=== PATIENT | female | born 1980 | race Caucasian/White ===

== ENCOUNTER 2016-10-04 19:29 | Inpatient (IN) | payer MEDICAID ==
--- NOTE | 2016-10-04 20:46 | OBHP ---
Datetime: 10/04/2016 20:01 IP Adm Impression: Term, intrauterine ; No Active Labor IP Chief Complaint Other: Gestational diabetes melitus IP Admit Plan: Admit to unit; Initiate labor induction protocol Admit Comment, IP Provider: 36 yo , LMP 01/08/16, AKILAH 10/14/16, EGA 38w 4d c/o decreased mov ement since 0700 hours. Also, passed blood-tinged mucous plug 1200 hours, and onset of contractions 1 300 hours; pain scale 5/10. Spoke with Pvt Ob, Dr. Keyes - told to come in for evaluation. Currently , maintains decreased FM. issues: 1) AMA; 2) newly diagnosed A1 GDM, 10/03/16; not done F.S. ; not on meds; 3) gallstones - 06/2016. P Ob: primip P [employer]ISHING [employer]PER[employer]: 14 x monthly x 5-6 PMH: gallstones, 2015 PSH: Age 13- left surgery (fell; dislocation) NKDA Meds: PNV Soc Hx: denies tobacco, illicit drug or EtOH use. x "almost 2 years" Fam Hx: Mother alive 68 y.o. Father age 56 - complications of DM. No known fam h/o cance r P.E.: as above. WD in NAD. Awake, alert, oriented to time, person and place. Pleasant and cooperat ronald. present Assessment: 36 y.o. P0, 38w 4d, AMA, decreased movement, newly diagnosed GDM. F.S. now 62 mg /dL. Categroy 1 tracing. D/W Dr. Keyes: admit for cervical ripening and delivery. Patient agrees. [place] is clinically stable. Plan: 1) Admit 2) NPO 3) Admission labs 4) Continuous EFM 5) F.S. q4 hr 6) Pain medication, upon request 7) Cervidil 8) Anticipate vaginal delivery - as per, and discussed with, Dr. Keyes Pelvic Type - PN: Adequate Extremities - PN: Normal Abdomen - PN: Normal Back - PN: Normal Breast - PN: Not Done Lungs - PN: Normal Heart - PN: Normal Thyroid - PN: Not Done Neurologic - PN: Normal HEENT - PN: Normal General - PN: Normal Weight - Estimated: 3178 Presentation-Admit: Vertex FHR - Baseline A Provider: 130 Membranes, Provider: Intact Contraction Comments Provider: uterine irritability Comments, ACOG Physical Exam: Skin: warm, dry, intact HEENT: full ROM Lungs: CTA bilaterally Cardiac: RRR, normal S1 S2 Abdomen: Gravid. Soft, non tender. fundal height 38cm : no masses or discharge Extremities: (+) scar left knee. No calf tenderness, cyanosis or edema all other systems reviewed - as per HPI Gestation - Est Wks by US: 38w 5d EGA AdmitDate IP: 38.4 Vital Signs Provider: Reviewed IP Indication for Induction Oth: decreased movement; A1 GDM IP Chief Complaint: Decreased movement NICHD Variability Prov Fetus A: Moderate 6-25bpm NICHD Accel Fetus A IP Provider: 10X10 NICHD Decel Fetus A IP Provider: None Dilatation, Provider: 2 Effacement, Provider: 30 Station, Provider: -3 Genitourinary Exam: Normal DTRs - PN: Not Done
[2016-10-04 20:48] VITALS: BMI 26.5
[2016-10-04] MEDS ORDERED: Lactated Ringer's 1,000 ML IV SCH (21:00)
[2016-10-04] MEDS ORDERED: Nalbuphine 20 mg/ml Inj (1 ml) IVP PRN (21:00)
[2016-10-04] MEDS ORDERED: Dextrose 5%/Lactated Ringer's 1,000 ML IV SCH (21:00)
[2016-10-04 21:20] LABS: BASO # 0.1 K/uL (0.0-0.2); BASO % 0.8 % (0.0-2.0); EOS # 0.1 K/uL (0.0-0.7); EOS % 0.7 % (0.0-4.0); HEMATOCRIT 39.7 % (34.0-47.0); LYMPH # 2.1 K/uL (1.0-4.3); LYMPH % 23.3 % (20.0-40.0); MEAN CELL VOLUME 84.8 fL (81.0-99.0); MEAN CORPUSCULAR HEMOGLOBIN 28.9 pg (27.0-31.0); MEAN CORPUSCULAR HGB CONC 34.1 g/dL (33.0-37.0); MEAN PLATELET VOLUME 9.3 fL (7.2-11.7); MONO # 0.8 K/uL (0.0-0.8); MONO % 8.5 % (0.0-10.0); RBC URINE 1 /hpf (0-3); RED CELL DISTRIBUTION WIDTH 13.7 % (11.5-14.5); URINE BACTERIA OCC (<OCC); URINE BILIRUBIN NEGATIVE (NEGATIVE); URINE BLOOD 1+ (NEGATIVE); URINE COLOR Straw (YELLOW); URINE GLUCOSE (UA) NORMAL (Normal); URINE KETONE NEGATIVE (NEGATIVE); URINE LEUKOCYTE ESTERASE NEG Leu/uL (Negative); URINE PROTEIN NEGATIVE (NEGATIVE); URINE UROBILINOGEN NORMAL mg/dL (0.2-1.0); WBC URINE 1 /hpf (0-5); WHITE BLOOD COUNT 8.9 K/uL (4.8-10.8)
[2016-10-04 21:24] LABS: CHLORIDE 95 mmol/L (98-107)
[2016-10-04 21:25] LABS: SODIUM 135 mmol/L (132-148)
[2016-10-04 21:28] LABS: ALB/GLOB RATIO 1.1 (1.0-2.1); ALKALINE PHOSPHATASE 111 U/L (38-126); ALT/SGPT 20 U/L (9-52); AST/SGOT 20 U/L (14-36); BILIRUBIN,TOTAL 0.3 mg/dL (0.2-1.3); BLOOD UREA NITROGEN 6 mg/dL (7-17); CARBON DIOXIDE 25 mmol/L (22-30); GFR AFRICAN-AMERICAN > 60; GLUCOSE,RANDOM 69 mg/dL (65-105); TOTAL PROTEIN 7.4 g/dL (6.3-8.3)
[2016-10-04 21:29] LABS: CALCIUM 9.5 mg/dl (8.6-10.4)
[2016-10-05] MEDS ORDERED: Bupivacaine HCl 0.25% PF (10 ml) Inj ONE ×2 (03:25→04:15)
[2016-10-05] MEDS ORDERED: Bupivacaine 0.125%/FentaNYL 200 ML EPI ONE (03:26)
--- NOTE | 2016-10-05 06:24 | OBADHP ---
Datetime: 10/05/2016 06:21 FHR - Baseline A Provider: 130 Contraction Comments Provider: q1-3 NICHD Variability Prov Fetus A: Moderate 6-25bpm FHR Category Provider Fetus A: Category II Dilatation, Provider: 10 Effacement, Provider: 100 Station, Provider: 0 Datetime: 10/04/2016 20:01 EGA AdmitDate IP: 38.4
--- NOTE | 2016-10-05 06:24 | OBPN ---
Datetime: 10/05/2016 06:21 IP Procedures: Sterile Vag Exam Contraction Comments Provider: q1-3 FHR - Baseline A Provider: 130 IP Progress Note Comment: pt was examined at bed side_ srom ve fd/100/0 anticipate FHR Category Provider Fetus A: Category II NICHD Variability Prov Fetus A: Moderate 6-25bpm Dilatation, Provider: 10 Effacement, Provider: 100 Station, Provider: 0 Datetime: 10/04/2016 20:01 IP Informed Consent Obtain: Vaginal Delivery Membranes, Provider: Intact Gestation - Est Wks by US: 38w 5d Weight - Estimated: 3178 Presentation-Admit: Vertex Vital Signs Provider: Reviewed NICHD Accel Fetus A IP Provider: 10X10 NICHD Decel Fetus A IP Provider: None
--- NOTE | 2016-10-05 06:26 | OBDS ---
MATERNAL INFORMATION Provider Comments: baby delivrd in nikhil. cord auuuound neck and body end clean peads present 9/9 no com LABOR SUMMARY EDC: 10/14/2016 00:00 No. Babies in Womb: 1 LABOR INFORMATION Cervical Ripening Agents: REMOVED CERVIDIL Group B Beta Strep: Negative (Annotations: 09/28/2016) MEMBRANES Membranes Rupture Method: Spontaneous Amniotic Fluid Color: Clear Amniotic Fluid Amount: Small Amniotic Fluid Odor: Normal STAGES OF LABOR Stage 3 hrs: 0 Stage 3 min: 4 VAGINAL DELIVERY Episiotomy: None Laceration Extension: Second Degree Laceration Type: Vaginal; Periurethral Laceration Repair Note: repaire with 2 and 3 vircyl BABY A INFORMATION Infant Delivery Date/Time: 10/05/2016 06:02 Method of Delivery: Vaginal Born in Route : No : N/A Forceps: N/A Vacuum Extraction: N/A Shoulder Dystocia : Yes SHOULDER DYSTOCIA BABY A Delivery Date/Time: 10/05/2016 06:02 PRESENTATION/POSITION BABY A Presentation: Cephalic Cephalic Presentation: Vertex Breech Presentation: N/A PLACENTA INFORMATION BABY A Placenta Delivery Time : 10/05/2016 06:06 Placenta Method of Delivery: Spontaneous Placenta Status: Delivered SCORES BABY A Heart Rate 1 min: >100 bpm Resp Effort 1 min: Good Cry Reflex Irritability 1 min: Cough or Sneeze or Pulls Away Muscle Tone 1 min: Active Motion Color 1 min: Body [place], Extremities Blue Resuscitation Effort 1 min: N/A SCORE 1 MIN: 9 Heart Rate 5 min: >100 bpm Resp Effort 5 min: Good Cry Reflex Irritability 5 min: Cough or Sneeze or Pulls Away Muscle Tone 5 min: Active Motion Color 5 min: Body [place], Extremities Blue Resuscitation Effort 5 min: N/A SCORE 5 MIN: 9 INFORMATION BABY A Gestational Age at Delivery: 38.5 Gestational Status: Term Infant Outcome : Liveborn Infant Condition : Stable Sex: Female IDENTIFICATION/MEDS BABY A ID Band Number: [id number] ID Band Location: Left Leg; Left Arm Sensor Applied: Yes Sensor Number: [id number] Sensor Location : Cord Clamp Vitamin K Given : Not Given Erythromycin Given: Not Given WEIGHT/LENGTH BABY A Birthweight (gms): 2745 Weight (lb): 6 Weight (oz): 1 Length Inches: 18.50 Infant Length cms: 47.0 CORD INFORMATION BABY A No. Cord Vessels: #3 Nuchal Cord : Around Neck x1, Loose, Nuchal Cord Other: around body x1 Cord Blood Taken: Yes ASSESSMENT BABY A Complications: Decreased Variability; Multiple Variable Decels Physical Findings at Delivery: Within Normal Limits Respirations: Appears Normal Ditch Digger/ALS Called : Yes Care By: dr morales Transferred To: [facility]
[2016-10-05] MEDS ORDERED: Oxycodone/Acetaminophen 5/325 mg Tab PO PRN (06:30)
[2016-10-05] MEDS ORDERED: Oxytocin 30 UNIT 1,000 ML IV SCH (06:30)
[2016-10-05] MEDS ORDERED: Oxytocin 10 Units/ml Inj ONE (08:08)
[2016-10-06 07:27] LABS: BASO # 0.1 K/uL (0.0-0.2); BASO % 0.3 % (0.0-2.0); EOS # 0.3 K/uL (0.0-0.7); EOS % 1.7 % (0.0-4.0); HEMATOCRIT 33.4 % (34.0-47.0); LYMPH # 2.6 K/uL (1.0-4.3); LYMPH % 14.8 % (20.0-40.0); MEAN CELL VOLUME 86.1 fL (81.0-99.0); MEAN CORPUSCULAR HEMOGLOBIN 28.2 pg (27.0-31.0); MEAN CORPUSCULAR HGB CONC 32.7 g/dL (33.0-37.0); MEAN PLATELET VOLUME 8.7 fL (7.2-11.7); MONO # 1.1 K/uL (0.0-0.8); MONO % 6.4 % (0.0-10.0); RED CELL DISTRIBUTION WIDTH 13.8 % (11.5-14.5)
[2016-10-06 07:33] LABS: WHITE BLOOD COUNT 17.5 K/uL (4.8-10.8)
--- NOTE | 2016-10-06 07:33 | OBPPN ---
Datetime: 10/06/2016 07:32 PP Pain Prov: Within normal limits PP Nausea Prov: Denies PP Flatus Prov: Yes PP Abdomen/Uterus Prov: Normal PP Lochia Prov: Normal PP Extremities Prov: Normal PP Comments Phys Exam Prov: fudus below umb ext mild edema,no calf ten PP Impression Prov: Normal progression PP Plan Prov: Continue present management PP Progress Note Prov: pt was seen at bed side, pain under control,no n/v, tolerating deit,voiding,m in [place], flatuas+ ppd#1 s/p cbc reg deit encourage ambulation cont pp care Vital Signs Provider PP: Reviewed; Within Normal Limits
[2016-10-06] MEDS ORDERED: Benzocaine/Menthol 20%-0.5% Topical Spray (60 ml) TOP PRN (10:35)
--- NOTE | 2016-10-07 06:28 | OBPPN ---
Datetime: 10/07/2016 06:26 PP Pain Prov: Within normal limits PP Nausea Prov: Denies PP Flatus Prov: Yes PP BM Prov: Yes PP Abdomen/Uterus Prov: Normal PP Lochia Prov: Normal PP Extremities Prov: Normal PP Comments Phys Exam Prov: fudus below umb 'ext no edema,no calf ten PP Impression Prov: Normal progression PP Plan Prov: Discharge PP Progress Note Prov: pt was seen at bed side, pain under control,no n/v, tolerating deit,voiding,m in och[place], flatuas+ ppd#2 dc home no sex motrin prn f/u in 3weeks Vital Signs Provider PP: Reviewed; Within Normal Limits
--- NOTE | 2016-10-07 06:30 | OBDCSUM ---
Datetime: 10/07/2016 06:27 Discharged to, Provider: Home Follow up at, Provider: [facility] Discharge Diagnosis, Provider: Term Delivered Follow up in weeks, Provider: dr malorie bhagat Disch Activity Restrictions: No exercising; No lifting; No driving; Minimize walking; Minimize stair -climbing; Nothing in vagina - [place], tampons, douche Discharge Comment, Provider: no sex motrin prn f/u in 3wek Discharge Diagnosis Prov Other: s/p
[2016-10-07 10:18] VITALS: BP 118/80; PULSE 83; RESP 18; TEMP 98.7; O2SAT 97
== END 2016-10-07 12:00 | disposition home or self-care (01) | DRG 372 ==
LOC: C.EROB 19:29 → C.4D 20:46 → C.4M 10-05 08:30
PROVIDERS: ADMIT Specialist; ATTEND Specialist
PROC: 10E0XZZ Delivery of Products of Conception, External Approach (ICD-10-PCS; principal; 2016-10-05)
PROC: 3E0P7GC Introduction of Other Therapeutic Substance into Female Reproductive, Via Natural or Artificial Opening (ICD-10-PCS; 2016-10-05)
PROC: 0KQM0ZZ Repair Perineum Muscle, Open Approach (ICD-10-PCS; 2016-10-05)
DX: O36.8130 Decreased fetal movements, third trimester, not applicable or unspecified (principal); O24.420 Gestational diabetes mellitus in childbirth, diet controlled; O69.81X0 Labor and delivery complicated by cord around neck, without compression, not applicable or unspecified; O71.82 Other specified trauma to perineum and vulva; O76 Abnormality in fetal heart rate and rhythm complicating labor and delivery; Z37.0 Single live birth; Z3A.38 38 weeks gestation of pregnancy; Z83.3 Family history of diabetes mellitus